=== PATIENT | male | born 2000 | race Caucasian/White ===

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

== ENCOUNTER 2018-02-18 01:59 | Emergency (ER) | payer OTHER ==
[2018-02-18] MEDS ORDERED: fentaNYL 100 MCG/2 ML INJ IM ONE (02:12)
--- NOTE | 2018-02-18 02:21 | EDPHY ---
H & P Stated Complaint: R shoulder dislocation Time Seen by Provider: 02/18/18 02:06 HPI/ROS: HPI The patient presents with concern for right shoulder dislocation. He awoke from sleep with severe right shoulder pain and deformity. He believes that he turned in his bed and dislocated his shoulder this way. This is happened several times before. He has undergone surgical repair and 2016 but since has had occasional dislocations. He is managed by Orthopedics at [facility]. He denies any numbness or tingling of his arm.. REVIEW OF SYSTEMS 10 systems were reviewed and negative with the exception of the elements mentioned in the history of present illness. PMHx: Recurrent right shoulder dislocations Soc Hx: Here with his mother PHYSICAL General Appearance: Alert, no distress Eyes: Pupils equal and round no pallor or injection ENT, Mouth: Mucous membranes moist Respiratory: There are no retractions, lungs are clear to auscultation Cardiovascular: Regular rate and rhythm Gastrointestinal: Abdomen is soft and non-tender, no masses, bowel sounds normal Neurological: A&O, moves all extremities Skin: Warm and dry, no rashes Musculoskeletal: Neck is supple non tender Extremities: Obvious deformity right shoulder with sensation intact throughout arm Psychiatric: Patient is oriented X 3, there is no agitation Source: Patient Exam Limitations: No limitations - Personal History Current Tetanus Diphtheria and Acellular Pertussis (TDAP): Yes - Medical/Surgical History Hx Asthma: No Hx Chronic Respiratory Disease: No Hx Diabetes: No Hx Cardiac Disease: No Hx Renal Disease: No Hx Cirrhosis: No Hx Alcoholism: No Hx HIV/AIDS: No Hx Splenectomy or Spleen Trauma: No Other PMH: R shoulder dislcocations - Social History Smoking Status: Former smoker Constitutional: Initial Vital Signs Temperature (C) 36.6 C 02/18/18 02:03 Heart Rate 66 02/18/18 02:03 Respiratory Rate 16 02/18/18 02:03 Blood Pressure 105/58 L 02/18/18 02:03 O2 Sat (%) 97 02/18/18 02:03 O2 Delivery Mode Room Air Allergies/Adverse Reactions: No Known Allergies Allergy (Unverified 02/18/18 02:03) Home Medications: Medication Instructions Recorded NK [No Known Home Meds] 02/18/18 Medical Decision Making Procedures: REDUCTION Procedure: Dislocation reduction. Indication: Dislocation The shoulder was reduced in the usual fashion without complications. I was able to apply traction inferiorly to his right arm and with minimal effort the shoulder reduced. Post reduction the patient's neurovascular exam is normal. Post reduction x-ray demonstrates reduction of the joint to the anatomic position. The procedure was performed by myself. Differential Diagnosis: 18-year-old male with frequent shoulder dislocations presents with shoulder deformity and pain which awoke him from sleep tonight. He believes he dislocated his shoulder in his sleep. He is neurovascularly intact. Here, he was given fentanyl 100 mcg. With minimal effort I was able to reduce his shoulder dislocation. He is here with his own sling which he will wear for the next 2-3 days. He is neurovascularly intact. I do not think x-rays necessary at this time. He will be instructed to follow up with his outpatient treating orthopedist. - Data Points Medications Given: Discontinued Medications Fentanyl (Sublimaze) 100 mcg IM EDNOW ONE Stop: 02/18/18 02:13 Last Admin: 02/18/18 02:14 Dose: 100 mcg Ondansetron HCl (Zofran Odt) 4 mg PO EDNOW ONE Stop: 02/18/18 02:27 Last Admin: 02/18/18 02:27 Dose: 4 mg Departure - Departure Disposition: Home, Routine, Self-Care Clinical Impression: Recurrent dislocation, right shoulder Condition: Good Instructions: Shoulder Dislocation (ED) Referrals: Charmaine Seay MD [Primary Care Provider] - As per Instructions Ladarius Valero MD [Medical Doctor] - As per Instructions
[2018-02-18] MEDS ORDERED: ONDANSETRON DISINTEGRATING 4 MG TAB PO ONE (02:26)
[2018-02-18 03:04] VITALS: BP 119/68
== END 2018-02-18 03:05 | disposition home or self-care (01) ==
PROC: 0RSJXZZ Reposition Right Shoulder Joint, External Approach (ICD-10-PCS; principal; 2018-02-18)
DX: M24.411 Recurrent dislocation, right shoulder (principal)

== ENCOUNTER 2018-03-05 19:56 | Emergency (ER) | payer OTHER ==
[2018-03-05 20:00] VITALS: BP 125/93
--- NOTE | 2018-03-05 20:29 | EDPHY ---
General Time Seen by Provider: 03/05/18 20:26 Narrative: CHIEF COMPLAINT: Shoulder dislocation HISTORY OF PRESENT ILLNESS: Patient presents by private vehicle with mother with complaints of right shoulder dislocation. He states that approximately 30 min prior to arrival he was putting his arms over his head when he sneezed and the right shoulder dislocated. This has happened to him several times in the past. Most recently 2 weeks ago, for which she was seen and reduced here. He has undergone arthroscopic surgery of the right shoulder last year for recurrent dislocations. He has moderate pain right shoulder with some tingling of the right hand. He attempted to reduce it himself as he has been instructed to do without any improvement. He has no trauma or injury. No other associated complaints or modifying factors. DOMINANT EXTREMITY: Right-hand dominant ESTABLISHED ORTHOPEDIST: Leatha palumbo REVIEW OF SYSTEMS: Ten systems reviewed and are negative unless otherwise noted in the HPI PAST MEDICAL HISTORY: Recurrent shoulder dislocations PAST SURGICAL HISTORY: Right shoulder arthroscopy SOCIAL HISTORY: Nonsmoker. Lives and works here locally. FAMILY HISTORY: Noncontributory EXAMINATION: General Appearance: Alert, no distress Cardiovascular: Radial pulse is easily palpable in the right with some dusky appearance to the right hand. Sluggish refill in the fingers of the right hand. Neurological: A&O, sensory symmetric, strength symmetric Skin: Warm and dry, no rash Extremities: Step-off of the right shoulder with suspected dislocation. Unable to range the right shoulder. All compartments are soft right upper extremity. Psychiatric: Mood and affect normal DIFFERENTIAL DIAGNOSES: Including but not limited to shoulder dislocation, vascular compromise, subluxation MDM: 8:20 p.m. Acute, recurrent, right anterior shoulder dislocation. No trauma as this happened while he was putting his arms overhead. He is right-hand dominant. He is in no acute distress. He has excellent signs of perfusion distal to the injury. I have administered intra-articular Marcaine plain, 10 mL. I have been able to reduce the shoulder with traction. X-ray is currently being obtained. He remained CMS intact postprocedure. 8:45 p.m. Patient re-evaluated. He continues to feel well. His right hand feels normal to him. He has no numbness or tingling. He is able to move the right shoulder with precautions. He feels though the shoulder is well reduced. 9:45 p.m. Case discussed with radiologist Dr. Rajput. The preliminary interpretation of the x-ray was anterior dislocation on the Y view only, normal appearance on the AP view. I discussed this further with Dr. Rajput. I informed him that the patient did have good range of motion of the shoulder without difficulty and he suspects that this x-ray may indicate subluxation and not dislocation. I attempted to contact the patient but was unsuccessful in doing so. PROCEDURE: Closed reduction of shoulder Consent: Verbal Location: Right shoulder Anesthesia: Intra-articular Marcaine, plain. 10 mL. No procedural sedation Procedure: After time-out and good anesthesia, the right shoulder was placed into traction with scapular rotation. I was able to easily reduce the shoulder without difficulty. Tolerated well. Complications: None. Radial pulses symmetric postprocedure with brisk cap refill the right hand postprocedure. Post-reduction film: Successful reduction SUPERVISION: This patient was independently evaluated without direct involvement of or examination by the attending physician. - Diagnostics Imaging Results: Imaging Impressions Shoulder X-Ray 03/05/18 20:19 Impression: Anterior dislocation of the right shoulder, without fracture. Imaging: Discussed imaging studies w/ machine scallop cutter Radiologist, I viewed and interpreted images myself - History Smoking Status: Former smoker - Objective Vital Signs: Initial Vital Signs Temperature (C) 98.6 F 03/05/18 19:58 Heart Rate 96 03/05/18 19:58 Respiratory Rate 20 03/05/18 19:58 Blood Pressure 125/93 H 03/05/18 19:58 O2 Sat (%) 98 03/05/18 19:58 O2 Delivery Mode Room Air Allergies/Adverse Reactions: No Known Allergies Allergy (Unverified 03/05/18 19:58) Home Medications: Medication Instructions Recorded NK [No Known Home Meds] 02/18/18 Medications Given: Discontinued Medications Ibuprofen (Motrin) 600 mg PO EDNOW ONE Stop: 03/05/18 20:35 Last Admin: 03/05/18 20:36 Dose: 600 mg Departure - Departure Disposition: Home, Routine, Self-Care Clinical Impression: Shoulder dislocation, recurrent Qualifiers: Laterality: right Qualified Code(s): M24.411 - Recurrent dislocation, right shoulder Condition: Good Instructions: Shoulder Dislocation (ED) Additional Instructions: 1. Sling for right upper extremity until cleared by orthopedist 2. Ice and elevate often 3. Ibuprofen 600 mg every 6 hr as needed Referrals: Charmaine Seay MD [Primary Care Provider] - As per Instructions [facility] [Outside] - As per Instructions Sunny Blackwell MD [Medical Doctor] - As per Instructions
[2018-03-05] MEDS ORDERED: IBUPROFEN 600 MG TAB PO ONE (20:34)
== END 2018-03-05 21:00 | disposition home or self-care (01) ==
PROC: 0RSJXZZ Reposition Right Shoulder Joint, External Approach (ICD-10-PCS; principal; 2018-03-05)
DX: M24.411 Recurrent dislocation, right shoulder (principal)

== ENCOUNTER 2018-09-23 19:42 | Inpatient (IN) | payer OTHER | END 2018-09-26 18:50 | disposition home or self-care (01) | LOC: BBEH 09-24 10:45 ==